=== PATIENT | male | born 1975 | race African-American/Black ===

== ENCOUNTER 2017-07-09 16:42 | Emergency (ER) | payer SELFPAY ==
[~2017-07-09] VITALS: Ht 175.3 cm; Wt 130.0 kg
[2017-07-09 18:25] LABS: BASOPHILS % 0.9 % (0.0-2.0); EOSINOPHILS % 0.8 % (0.0-5.0); LYMPHOCYTES % 21.7 % (20.0-50.0); MEAN CORPUSCULAR HEMOGLOBIN 30.6 pg (28.0-32.0); MEAN CORPUSCULAR VOLUME 89.8 fL (80.0-94.0); MEAN PLATELET VOLUME 10.2 fl (7.4-10.4); MONOCYTES % 8.2 % (2.0-8.0); NEUTROPHILS % 68.4 % (40.0-76.0); PLATELET 174 x1000/uL (130-400); RED BLOOD CELL COUNT 5.24 mill/uL (4.7-6.1); RED CELL DISTRIBUTION WIDTH 14.1 % (11.6-14.6)
[2017-07-09 18:32] LABS: CHLORIDE 108 mEq/L (98-107); INR 1.1; PROTHROMBIN TIME 11.7 sec (9.4-11.6)
[2017-07-09 22:05] VITALS: BP 119/78
== END 2017-07-09 22:05 | disposition home or self-care (01) ==
LOC: ER 16:44
DX: R07.89 Other chest pain (principal); K21.9 Gastro-esophageal reflux disease without esophagitis
CPT/HCPCS: 36415; 71045; 80053; 83605; 83690; 83880; 84484; 85025; 85610; 93005; 99285